=== PATIENT | female | born 1980 | race Caucasian/White ===

== ENCOUNTER 2018-02-09 10:59 | Inpatient (IN) | payer MEDICAID, OTHER ==
[~2018-02-09] VITALS: Ht 170.2 cm; Wt 138.8 kg
[2018-02-09] MEDS ORDERED: PREN-380 PO (12:15)
== END 2018-02-09 14:20 | disposition home or self-care (01) | DRG 566 ==
LOC: MLD 10:59
PROVIDERS: ADMIT Obstetrics & Gynecology; ATTEND Obstetrics & Gynecology
DX: O76 Abnormality in fetal heart rate and rhythm complicating labor and delivery (principal); Z3A.37 37 weeks gestation of pregnancy
CPT/HCPCS: 76819; Q0092

== ENCOUNTER 2018-02-18 02:48 | Inpatient (IN) | payer MEDICAID, OTHER ==
[~2018-02-18] VITALS: Ht 170.2 cm; Wt 139.7 kg
[~2018-02-18 02:48] MED LIST: PREN-380 PO
[2018-02-18] MEDS ORDERED: LACTATED RINGERS 1,000 ML IV SCH (06:30)
[2018-02-18] MEDS ORDERED: TRIMETHOBENZAMIDE 200 MG/2 ML SYR IM PRN (06:35)
[2018-02-18] MEDS ORDERED: oxyCODONE/APAP 5/325 MG 1 TAB TAB PO PRN (06:35)
[2018-02-18] MEDS ORDERED: HYDROcodone/APAP 5/325 MG 1 TAB TAB PO PRN (06:35)
[2018-02-18] MEDS ORDERED: MEASLES, MUMPS, AND RUBELLA 1 VIAL SQVAC PRN (06:35)
[2018-02-18] MEDS ORDERED: METHYLERGONOVINE 0.2 MG/ML AMP IM PRN (06:35)
[2018-02-18] MEDS ORDERED: IBUPROFEN 800 MG TAB PO PRN (06:35)
[2018-02-18] MEDS ORDERED: TEMAZEPAM 15 MG CAP PO PRN (06:35)
[2018-02-18 06:49] VITALS: BP 125/84
[2018-02-18 07:14] LABS: BASOPHILS % (AUTO) 0.2 % (0.0-2.0); EOSINOPHILS # (AUTO) 0.1 K/uL (0-0.4); EOSINOPHILS % (AUTO) 1.3 % (0.0-4.0); HEMATOCRIT 27.8 % (36-48); HEMOGLOBIN 8.5 g/dL (12.0-16.0); LYMPHOCYTES # (AUTO) 2.2 K/uL (2.5-16.5); LYMPHOCYTES % (AUTO) 24.6 % (20.5-51.1); MEAN CORPUSCULAR HEMOGLOBIN 19 pg (27-31); MEAN CORPUSCULAR HGB CONC 31 g/dL (33-37); MEAN CORPUSCULAR VOLUME 62.4 fL (80-94); MONOCYTES # (AUTO) 0.5 K/uL (0.8-1.0); MONOCYTES % (AUTO) 5.2 % (1.7-9.3); NEUTROPHILS # (AUTO) 6.1 K/uL (1.8-7.7); NEUTROPHILS % (AUTO) 68.7 % (42.2-75.2); PLATELET COUNT (AUTO) 216 K/uL (140-450); RED BLOOD CELL COUNT(AUTO) 4.45 MIL/uL (4.20-5.40); WHITE BLOOD COUNT (AUTO) 8.9 K/uL (4.8-10.8)
[2018-02-18 07:35] LABS: ALBUMIN 2.2 g/dL (3.4-5.0); ANION GAP 11.9 (8-16); CARBON DIOXIDE 22.9 mmol/L (21-32); CREATININE 0.8 mg/dL (0.6-1.3); POTASSIUM 3.8 mmol/L (3.5-5.1); TOTAL BILIRUBIN 0.3 mg/dL (0.0-1.0)
[2018-02-18] MEDS ORDERED: CEFAZOLIN SODIUM 2 GM/D5W PM 50 ML IV SCH (07:55)
[2018-02-18] MEDS ORDERED: ONDANSETRON 4 MG/2 ML VIAL ONE ×2 (08:36→12:41)
[2018-02-18] MEDS ORDERED: SEVOFLURANE 250 ML BTL INH ONE (08:36)
[2018-02-18] MEDS ORDERED: PROPOFOL 200 MG/20 ML VIAL IV ONE (08:36)
[2018-02-18] MEDS ORDERED: KETOROLAC 30 MG/ML VIAL ONE (08:36)
[2018-02-18] MEDS ORDERED: DEXAMETHASONE 4 MG/ML VIAL ONE (08:36)
--- NOTE | 2018-02-18 09:04 | NUR ---
PATIENT HAS BEEN SCREENED AND CATEGORIZED LOW NUTRITION RISK. PATIENT WILL BE SEEN WITHIN 7 DAYS OF ADMISSION. 02/24/[address]
[2018-02-18] MEDS ORDERED: OXYTOCIN 10 UNITS/ML VIAL ONE ×2 (09:08→11:55)
[2018-02-18 10:07] LABS: APPEARANCE,URINE TURBID (CLEAR); BLOOD, URINE NEGATIVE (NEGATIVE); COLOR,URINE YELLOW (YELLOW); UGLUCOSE NEGATIVE (NEGATIVE)
[2018-02-18 10:08] LABS: BILIRUBIN,URINE NEGATIVE (NEGATIVE); LEUKOCYTE ESTERASE ,URINE 3+ (NEGATIVE); NITRITE, URINE POSITIVE (NEGATIVE)
[2018-02-18 10:10] LABS: RBC,URINE 0-5 (RARE) /HPF (0-5)
[2018-02-18 10:12] LABS: YEAST,URINE Few /HPF (None Seen)
[2018-02-18] MEDS ORDERED: MORPHINE PRES FREE 2 MG/2 ML 2 mL UD SYRINGE ONE (12:48)
[2018-02-18] MEDS ORDERED: BUPIVACAINE/DEXT 0.75% SPINAL 2 ML AMP INJ ONE (12:48)
[2018-02-18] MEDS ORDERED: OXYTOCIN 20 UNITS in LACTATED RINGERS 1,000 ML IV SCH (13:03)
[2018-02-18] MEDS ORDERED: NALOXONE 0.4 MG/ML VIAL IVP PRN ×2 (13:05)
[2018-02-18] MEDS ORDERED: diphenhydrAMINE 50 MG/ML VIAL IVP PRN (13:05)
[2018-02-18] MEDS: KETOROLAC 30 MG/ML VIAL IVP PRN (15:22)
[2018-02-18 19:24] LABS: HEMATOCRIT 26.6 % (36-48); HEMOGLOBIN 7.9 g/dL (12.0-16.0)
[2018-02-18] MEDS: OXYTOCIN 20 UNITS in LACTATED RINGERS 1,000 ML IV SCH (21:21)
[2018-02-19] MEDS ORDERED: OXYTOCIN 20 UNITS/LR PREMIX 1,000 ML IV ONE (05:08)
[2018-02-19] MEDS: OXYTOCIN 20 UNITS in LACTATED RINGERS 1,000 ML IV SCH (05:12)
[2018-02-19] MEDS: KETOROLAC 30 MG/ML VIAL IVP PRN (05:57)
[2018-02-19 06:44] LABS: BASOPHILS % (AUTO) 0.4 % (0.0-2.0); EOSINOPHILS # (AUTO) 0.1 K/uL (0-0.4); EOSINOPHILS % (AUTO) 0.8 % (0.0-4.0); HEMATOCRIT 24.2 % (36-48); HEMOGLOBIN 7.4 g/dL (12.0-16.0); LYMPHOCYTES # (AUTO) 2.1 K/uL (2.5-16.5); LYMPHOCYTES % (AUTO) 20.9 % (20.5-51.1); MEAN CORPUSCULAR HEMOGLOBIN 19 pg (27-31); MEAN CORPUSCULAR HGB CONC 31 g/dL (33-37); MEAN CORPUSCULAR VOLUME 62.7 fL (80-94); MONOCYTES # (AUTO) 0.4 K/uL (0.8-1.0); MONOCYTES % (AUTO) 4.3 % (1.7-9.3); NEUTROPHILS # (AUTO) 7.5 K/uL (1.8-7.7); NEUTROPHILS % (AUTO) 73.6 % (42.2-75.2); PLATELET COUNT (AUTO) 172 K/uL (140-450); RED BLOOD CELL COUNT(AUTO) 3.86 MIL/uL (4.20-5.40); RED CELL DISTRIBUTION WIDTH 20.6 % (11.6-13.7); WHITE BLOOD COUNT (AUTO) 10.2 K/uL (4.8-10.8)
[2018-02-19] MEDS ORDERED: TEMAZEPAM 15 MG CAP PO PRN (07:00)
[2018-02-19] MEDS ORDERED: oxyCODONE/APAP 5/325 MG 1 TAB TAB PO PRN (07:00)
[2018-02-19] MEDS: FERROUS SULFATE 325 MG TABEC PO SCH ×3 (08:45→17:58)
[2018-02-19] MEDS: HYDROcodone/APAP 5/325 MG 1 TAB TAB PO PRN ×2 (08:46→23:51)
[2018-02-19] MEDS ORDERED: KETOROLAC 30 MG/ML VIAL IVP PRN (11:55)
[2018-02-19] MEDS ORDERED: KETOROLAC 30 MG/ML VIAL IVP SCH ×2 (12:14→17:55)
[2018-02-19] MEDS: SIMETHICONE 80 MG TAB.CHEW PO PRN ×2 (12:19→17:58)
[2018-02-19] MEDS: DOCUSATE SOD/SENNA 50/8.6 MG 1 TAB PO SCH (21:05)
[2018-02-20] MEDS: SIMETHICONE 80 MG TAB.CHEW PO PRN ×4 (00:05→18:36)
[2018-02-20] MEDS: FERROUS SULFATE 325 MG TABEC PO SCH ×3 (09:00→18:33)
[2018-02-20] MEDS: IBUPROFEN 800 MG TAB PO PRN ×2 (09:09→18:35)
[2018-02-20] MEDS: METOCLOPRAMIDE 10 MG TAB PO PRN ×2 (09:10→18:35)
[2018-02-20] MEDS: DOCUSATE SOD/SENNA 50/8.6 MG 1 TAB PO SCH (21:26)
[2018-02-21] MEDS: IBUPROFEN 800 MG TAB PO PRN ×2 (06:48→20:14)
[2018-02-21] MEDS: FERROUS SULFATE 325 MG TABEC PO SCH ×3 (08:27→18:18)
[2018-02-21] MEDS: SIMETHICONE 80 MG TAB.CHEW PO PRN ×2 (08:28→21:48)
[2018-02-21] MEDS: DOCUSATE SOD/SENNA 50/8.6 MG 1 TAB PO SCH (21:27)
[2018-02-22] MEDS: SIMETHICONE 80 MG TAB.CHEW PO PRN (09:02)
[2018-02-22] MEDS: FERROUS SULFATE 325 MG TABEC PO SCH (09:03)
== END 2018-02-22 15:10 | disposition home or self-care (01) | DRG 540 ==
LOC: MLD 05:12 → MFCC 12:40
PROVIDERS: ADMIT Obstetrics & Gynecology; ATTEND Obstetrics & Gynecology
PROC: 0UB70ZZ Excision of Bilateral Fallopian Tubes, Open Approach (ICD-10-PCS; 2018-02-18)
PROC: 10D00Z1 Extraction of Products of Conception, Low, Open Approach (ICD-10-PCS; principal; 2018-02-18 07:30)
DX: O34.211 Maternal care for low transverse scar from previous cesarean delivery (principal); Z68.42 Body mass index [BMI] 45.0-49.9, adult; E66.3 Overweight; O99.284 Endocrine, nutritional and metabolic diseases complicating childbirth; Z30.2 Encounter for sterilization; Z37.0 Single live birth; Z3A.39 39 weeks gestation of pregnancy
CPT/HCPCS: 36415; 51702; 80053; 81001; 85018; 85025; 86592; 86886; 86900; 86901; 87081; 87086; 88302; J0690; J1100; J1885; J2270; J2405; J2590; J2704; J3490; J7060; J7120; J8597